=== PATIENT | female | born 1965 | race Hispanic/Latino ===

== ENCOUNTER 2020-06-10 14:18 | Emergency (ER) | payer OTHER ==
[~2020-06-10] VITALS: Ht 160 cm; Wt 122.0 kg
[2020-06-10 15:21] LABS: IMMATURE GRANULOCYTES 0.4 % (0.0-5.0); MEAN CELL VOLUME 85.3 fL CALC (80.0-100.0); MEAN CORPUSCULAR HGB 26.3 pG CALC (26.0-32.0); MEAN CORPUSCULAR HGB CONC 30.8 g/dL CAL (32.0-36.0); NEUT# 3.32 thou/uL (2.00-7.15); RED BLOOD COUNT 5.1 mill/uL (4.20-5.60); RED CELL DISTRI WIDTH 16.2 % (11.5-15.5)
[2020-06-10 15:24] LABS: HEMATOCRIT 43.5 % (37.0-47.0); HEMOGLOBIN 13.4 g/dl (12.0-16.0)
[2020-06-10 15:32] LABS: ALBUMIN 4.3 g/dL (3.2-5.0); BUN 12 mg/dL (7-17); BUN/CREATININE RATIO 12 (12-20 (CALC)); CHLORIDE 103 mmol/l (95-108); GFR 58 ML/MIN (>=60 (CALC)); GFR FOR AFR.AMER. > 60 ML/MIN (>=60 (CALC)); LIPASE 48 u/l (23-300); POTASSIUM 3.5 mmol/l (3.5-5.1); SODIUM 140 mmol/l (137-146); TOTAL PROTEIN 8.1 g/dL (6.3-8.2)
[2020-06-10 15:33] LABS: ALKALINE PHOSPHATASE 154 u/l (38-126); ANION GAP 13 (6-22 (CALC)); BILIRUBIN, TOTAL 0.5 mg/dL (0.0-1.4); CARBON DIOXIDE 28 mmol/l (22-30); SGOT/AST 64 u/l (14-36)
[2020-06-10 17:20] LABS: URINE BILIRUBIN - DIPSTICK NEGATIVE (NEGATIVE); URINE BLOOD DIPSTICK LARGE (NEGATIVE); URINE COLOR YELLOW; URINE GLUCOSE - DIPSTICK NEGATIVE (NEGATIVE); URINE KETONE NEGATIVE (NEGATIVE); URINE LEUK ESTERASE NEGATIVE (NEGATIVE); URINE NITRITE - DIPSTICK NEGATIVE (Negative); URINE PROTEIN - DIPSTICK 30 mg/dL (NEG-TRACE); URINE UROBILINOGEN - DIPSTICK 0.2 E.U./dL (0.2)
[2020-06-10 17:29] LABS: URINE SQUAMOUS EPITHELIAL CELL FEW EPI/hpf (0-FEW)
[2020-06-10] MEDS ORDERED: RANITIDINE75 M1 PO (17:41)
[2020-06-10 18:46] VITALS: BP 165/82
[2020-06-11] MEDS ORDERED: RANITIDINE75 M1 PO (12:11)
--- NOTE | 2020-06-12 16:10 | NUR ---
Notified patient of positive results via [employer] translator. Advised patient to quarantine until contacted by [facility] with further instructions and to return to ED with difficulty breathing or other urgent needs. Patient verbalized understanding.
== END 2020-06-10 18:56 | disposition home or self-care (01) | DRG 179 ==
LOC: ED 14:18
PROVIDERS: Family Medicine
DX: U07.1 COVID-19 (principal); R10.13 Epigastric pain; R19.7 Diarrhea, unspecified; R11.0 Nausea; I10 Essential (primary) hypertension
CPT/HCPCS: Q9967